=== PATIENT | male | born 2000 | race Two or more races ===

== ENCOUNTER 2022-12-12 10:16 | Emergency (ER) | payer OTHER ==
[~2022-12-12] VITALS: Ht 172.7 cm; Wt 81.6 kg
[2022-12-12] MEDS ORDERED: NAPROXEN 500 MG TABLET PO ONE (10:30)
[2022-12-12] MEDS ORDERED: NAPROXEN 500 MG TABLET ONE (10:36)
--- NOTE | 2022-12-12 11:49 | NUR ---
Gave pt d/c instructions, pt verbalized understanding. Translated by co-worker/boss
== END 2022-12-12 11:52 | disposition home or self-care (01) ==
LOC: ER 10:16
DX: S99.922A Unspecified injury of left foot, initial encounter (principal); M79.672 Pain in left foot; W20.8XXA Other cause of strike by thrown, projected or falling object, initial encounter; Y93.H3 Activity, building and construction; Y92.61 Building [any] under construction as the place of occurrence of the external cause; Y99.0 Civilian activity done for income or pay
CPT/HCPCS: 73630; A4663